=== PATIENT | female | born 1970 | race Caucasian/White ===

== ENCOUNTER → 2017-07-11 | Outpatient (CLI) | payer OTHER | END | disposition home or self-care (01) | LOC: KCIC MAMMO 11:20 | DX: Z12.31 Encounter for screening mammogram for malignant neoplasm of breast (principal) | CPT/HCPCS: 77067 ==

== ENCOUNTER → 2017-07-25 | Outpatient (CLI) | payer OTHER | END | disposition home or self-care (01) | LOC: KCIC MAMMO 08:53 | DX: R92.8 Other abnormal and inconclusive findings on diagnostic imaging of breast (principal); N63.21 Unspecified lump in the left breast, upper outer quadrant | CPT/HCPCS: 76641; 77065 ==

== ENCOUNTER → 2017-08-13 | Outpatient (CLI) | payer OTHER ==
[~2017-08-13] MED LIST: LIDOCAINE 1% Multi-Dose 50 ML VIAL. INJ; LIDOCAINE 2%/EPI 1:100,000 20 ML VIAL. IJ
== END | disposition home or self-care (01) ==
LOC: US 15:27
DX: N60.32 Fibrosclerosis of left breast (principal); N60.82 Other benign mammary dysplasias of left breast
CPT/HCPCS: 19083; 19085; 76942; 77065; 88305; C1713